=== PATIENT | female | born 1960 | race African-American/Black ===

== ENCOUNTER 2018-11-21 22:39 | Emergency (ER) | payer SELFPAY ==
[~2018-11-21] VITALS: Ht 165.1 cm; Wt 82.0 kg
[2018-11-21 22:56] VITALS: BP 100/58
== END 2018-11-22 01:00 | disposition left against medical advice (07) ==
LOC: ER 22:39
DX: R06.02 Shortness of breath (principal); R07.89 Other chest pain; Z53.21 Procedure and treatment not carried out due to patient leaving prior to being seen by health care provider
CPT/HCPCS: 93005